=== PATIENT | female | born 1955 | race Caucasian/White ===

== ENCOUNTER → 2023-02-23 | Day surgery (SDC) | payer MEDICAID ==
[~2023-02-23] VITALS: Ht 160 cm; Wt 56.2 kg
[~2023-02-23] MED LIST: AMLO2.5T45 PO; ATOR20TA65 PO; BALANCED SALT IRRIG SOLN COMB1 500ML OP SCH; CYCLOPENTOLATE HCL 1% OPHTH DROPS 2ML RIGHTEYE ONE; CYCLOPENTOLATE HCL 1% OPHTH DROPS 2ML RIGHTEYE SCH; EMPA1TAB7 PO; FENTANYL CITRATE/PF 50MCG/ML 2ML VIAL ONE; GLIM4TAB36 PO; HYALURONATE SODIUM 10 MG/ML 0.55ML SYRINGE IO ONE; MEMA5TAB42 PO; MIDAZOLAM HCL 2 MG/2 ML VIAL ONE; PHENYLEPHRINE HCL 10% OPHTH DROPS 5ML RIGHTEYE SCH; SODIUM CHLORIDE 0.9% 1,000 ML IV SCH; THROMBIN (BOVINE) 5000 UNITS/VIAL TOP ONE; TROPICAMIDE 1% OPHTH DROPS 15ML RIGHTEYE SCH; TRYPAN BLUE 0.5 ML DISP.SYRIN IO ONE
[2023-02-23 07:57] LABS: POTASSIUM 3.9 mEq/L (3.5-5.1)
== END | disposition home or self-care (01) ==
LOC: OR 06:53
PROVIDERS: ATTEND Ophthalmology
DX: E11.36 Type 2 diabetes mellitus with diabetic cataract (principal); H25.89 Other age-related cataract; I10 Essential (primary) hypertension; E78.00 Pure hypercholesterolemia, unspecified; Z79.84 Long term (current) use of oral hypoglycemic drugs; Z79.899 Other long term (current) drug therapy; Z98.890 Other specified postprocedural states
CPT/HCPCS: 82962; 84132; 36415; 66984; J3010; J2250; J3490; V2632; Q9957